=== PATIENT | female | born 1990 | race Caucasian/White ===

== ENCOUNTER 2019-05-30 05:46 | Emergency (ER) | payer SELFPAY ==
--- NOTE | 2019-05-30 06:08 | ER Document Report ---
ED GI/ - General Chief Complaint: Abdominal Pain Stated Complaint: STOMACH PAINS Time Seen by Provider: 05/30/19 06:07 Information source: Patient Notes: Ms. Rios is a 29 yo F w/ PMH anxiety presenting to the ED for abdominal pain and diarrhea. Patient states that it began early Thursday. She stayed home from work because she thought she had a right-sided ovarian cyst. She does endorse 30-40 episodes of diarrhea throughout the entire weekend between Thursday, Thursday and Thursday. Patient endorses ongoing nausea without any vomiting. She also endorses a decreased p.o. intake. She states she ate some cereal, and apple and some soup/tea all weekend. She denies any fevers but does endorse chills. She also endorses feeling anxious that she is never been in the hospital before by herself. She denies any chest pain, shortness of breath or cough. She states the diarrhea was nonbloody and yellowish in discoloration. She states that the pain has since relocated to the right upper quadrant. She has had previous umbilical hernia repair in the past. No dysuria, increased urinary frequency, vaginal discharge or lower pelvic pain. Patient states she has not been sexually active in 8 months. TRAVEL OUTSIDE OF THE [place] IN LAST 30 DAYS: No - Related Data Allergies/Adverse Reactions: No Known Allergies Allergy (Verified 05/30/19 06:39) Past Medical History - Social History Smoking Status: Never Smoker Chew tobacco use (# tins/day): No Frequency of alcohol use: None Drug Abuse: None Family History: Other - Cholelithiasis in mother Patient has suicidal ideation: No Patient has homicidal ideation: No Physical Exam - Vital signs Vitals: Temp Pulse Resp BP Pulse Ox 98.1 F 105 H 19 155/111 H 100 05/30/19 05:54 05/30/19 05:54 05/30/19 05:54 05/30/19 05:54 05/30/19 05:54 Interpretation: Hypertensive, Tachycardic - General General appearance: Appears well, Alert - HEENT Head: Normocephalic, Atraumatic Eyes: Normal Pupils: PERRL - Respiratory Respiratory status: No respiratory distress Chest status: Nontender Breath sounds: Normal Chest palpation: Normal - Cardiovascular Rhythm: Regular Heart sounds: Normal auscultation Murmur: No - Abdominal Inspection: Normal Distension: No distension Bowel sounds: Normal Tenderness: Tender. No: McBurney's point, Soler's sign, Guarding, Rebound - Tenderness to palpation in the epigastrium and right upper quadrant Organomegaly: No organomegaly - Back Back: Normal, Nontender - Extremities General upper extremity: Normal inspection, Nontender, Normal color, Normal ROM, Normal temperature General lower extremity: Normal inspection, Nontender, Normal color, Normal ROM, Normal temperature, Normal weight bearing. No: Sheridan's sign - Neurological Neuro grossly intact: Yes Cognition: Normal Orientation: AAOx4 [place] Coma Scale Eye Opening: Spontaneous [place] Coma Scale Verbal: Oriented [place] Coma Scale Motor: Obeys Commands [place] Coma Scale Total: 15 Speech: Normal Motor strength normal: LUE, RUE, LLE, RLE Sensory: Normal - Psychological Associated symptoms: Normal affect, Normal mood - Skin Skin Temperature: Warm Skin Moisture: Dry Skin Color: Normal Course - Re-evaluation Re-evalutation: Patient is generally well-appearing and nontoxic. Initial vitals notable for tachycardia as well as mildly elevated blood pressure. Differential diagnosis includes cholelithiasis, cholecystitis, GERD, gastritis Labs do not show significant leukocytosis or left shift. CMP notable for mild hyponatremia. Although the remainder of labs including LFTs are within normal limits. Lipase and UA negative. Right upper quadrant ultrasound does not show evidence of cholecystitis but patient does have cholelithiasis. Patient was given a friend and IV fluids on arrival as well as a small dose of Ativan for her anxiety. Patient will be ordered for GI cocktail given likely GERD diagnosis. 05/30/19 10:45 Patient endorses some improvement after GI cocktail. Patient discharged with famotidine and recommended to avoid foods high in acidity. Patient also recommended to avoid foods high in fat. Given return precautions should her pain worsen, unable to keep down food or drink, or any other concerning symp toms, or return to the ED for further evaluation. - Vital Signs Vital signs: Temp Pulse Resp BP Pulse Ox 98.7 F 78 16 108/68 99 05/30/19 10:51 05/30/19 10:51 05/30/19 10:51 05/30/19 10:51 05/30/19 10:51 - Laboratory Result Diagrams: 05/30/19 06:10 05/30/19 06:10 Laboratory results interpreted by me: 11/18/19 11/18/19 11/18/19 06:02 06:10 06:10 [place] % (Auto) 15.1 H Sodium 145.3 H Chloride 109 H Glucose 111 H AST 81 H Total Protein 8.4 H Urine Protein 30 H Urine Ketones 20 H Discharge - Discharge Clinical Impression: Abdominal pain, Diarrhea Condition: Good Disposition: HOME, SELF-CARE Instructions: Abdominal Pain ([facility]), Antinausea Medication ([facility]), Diarrhea, Nonspecific ([facility]) Additional Instructions: I would recommend that you avoid foods high in acidity such as tomato sauce, orange juice, and other citrus products. I would also try eating a bland per BRAT diet (bread, rice, bananas, apples, toast) the next 2 to 3 days. Make sure you stay well-hydrated and drink plenty of fluids. Follow-up with your primary care doctor. If your pain worsens, you are unable to keep down food or drink, or any other concerning symptoms, return to the ED for further evaluation. Prescriptions: Famotidine 40 mg PO DAILY #30 tablet
[2019-05-30] MEDS ORDERED: ONDANSETRON HCL INJ/PF 4 MG/2 ML SDV IV ONE (06:20)
[2019-05-30] MEDS ORDERED: NORMAL SALINE 1000 ML 1,000 ML IV ONE (06:20)
[2019-05-30] MEDS ORDERED: LORAZEPAM INJ 2 MG/1 ML VIAL IV ONE (06:20)
[2019-05-30 06:27] LABS: ABSOLUTE EOSINOPHILS # (AUTO) 0.1 10^3/uL (0.0-0.6); ABSOLUTE LYMPHOCYTES (AUTO) 1.7 10^3/uL (0.5-4.7); ABSOLUTE MONOCYTES (AUTO) 1.2 10^3/uL (0.1-1.4); ABSOLUTE NEUT (AUTO) 4.9 10^3/uL (1.7-8.2); BASOPHILS % (AUTO) 0.3 % (0-2); EOSINOPHILS % (AUTO) 1.4 % (0-6); HEMATOCRIT 44.4 % (36.0-47.0); HEMOGLOBIN 15.2 g/dL (12.0-15.5); LYMPHOCYTES % (AUTO) 21.2 % (13-45); MEAN CORPUSCULAR HEMOGLOBIN 30.3 pg (27.0-33.4); MEAN CORPUSCULAR HGB CONC 34.3 g/dL (32.0-36.0); MEAN CORPUSCULAR VOLUME 88 fl (80-97); MONOCYTES % (AUTO) 15.1 % (3-13); PLATELET COUNT 290 10^3/uL (150-450); RED BLOOD COUNT 5.03 10^6/uL (3.72-5.28); RED CELL DISTRIBUTION WIDTH 13.7 % (11.5-14.0); TOTAL CELLS COUNTED % (AUTO) 100 %; WHITE BLOOD COUNT 7.9 10^3/uL (4.0-10.5)
[2019-05-30 06:32] LABS: APPEARANCE,URINE CLOUDY; BILIRUBIN,URINE NEGATIVE (NEGATIVE); CALCIUM OXALATE CRYSTALS,URINE TOO NUMEROUS TO CNT /HPF; COLOR,URINE DARK YELLOW; GLUCOSE, URINE NEGATIVE (NEGATIVE); KETONES,URINE 20 mg/dL (NEGATIVE); LEUKOCYTE ESTERASE,URINE NEGATIVE (NEGATIVE); NITRITE,URINE NEGATIVE (NEGATIVE); PROTEIN,URINE 30 mg/dL (NEGATIVE); URINE SPECIFIC GRAVITY 1.033; UROBILINOGEN,URINE NEGATIVE mg/dL (<2.0)
[2019-05-30 06:49] LABS: ALBUMIN 4.7 g/dL (3.5-5.0); ALKALINE PHOSPHATASE 80 U/L (38-126); ANION GAP 13 (5-19); ASPARTATE AMINO TRANSFERASE 81 U/L (14-36); BILIRUBIN,DIRECT 0.1 mg/dL (0.0-0.4); BILIRUBIN,TOTAL 0.4 mg/dL (0.2-1.3); BLOOD UREA NITROGEN 10 mg/dL (7-20); CALCIUM 9.7 mg/dL (8.4-10.2); CARBON DIOXIDE 23 mmol/L (22-30); CHLORIDE 109 mmol/L (98-107); GLUCOSE 111 mg/dL (75-110); POTASSIUM 4.2 mmol/L (3.6-5.0); TOTAL PROTEIN 8.4 g/dL (6.3-8.2)
--- NOTE | 2019-05-30 08:24 | RADIOLOGY REPORT (SQ) ---
EXAM DESCRIPTION: U/S ABDOMEN LIMITED W/O DOP COMPLETED DATE/TIME: 05/30/2019 7:14 am REASON FOR STUDY: ruq pain COMPARISON: None. TECHNIQUE: Dynamic and static grayscale images acquired of the abdomen and recorded on PACS. Kamalao butch selected color Doppler and spectral images recorded. LIMITATIONS: None. FINDINGS: PANCREAS: No masses. Visualized pancreatic duct normal caliber. LIVER: Fatty liver. The liver measures 17.0 cm in length, upper limits of normal for size. LIVER VASCULATURE: Normal directional flow of the main portal vein and hepatic veins. GALLBLADDER: No stones. The gallbladder wall measures 2.1 mm, normal wall thickness. No pericholecys tic fluid. ULTRASOUND-DETECTED BRENNAN'S SIGN: Negative. INTRAHEPATIC DUCTS AND COMMON DUCT: CBD measures 3.0 mm in diameter, normal. The intrahepatic ducts normal caliber. No filling defects. INFERIOR VENA CAVA: Normal flow. AORTA: No aneurysm. RIGHT KIDNEY: The right kidney measures 10.0 x 5.1 x 5.4 cm, normal size. Normal echogenicity. No so lid or suspicious masses. No hydronephrosis. No calcifications. PERITONEAL AND RIGHT PLEURAL SPACE: No ascites or effusions. OTHER: No other significant findings. IMPRESSION: 1. NORMAL RIGHT UPPER QUADRANT ULTRASOUND. TECHNICAL DOCUMENTATION: JOB ID: [id number] [employer]- All Rights Reserved Reading location - IP/workstation name: [email or web address]
[2019-05-30] MEDS ORDERED: METOCLOPRAMIDE HCL ORAL SOLN 10 MG/10 ML UDCUP PO ONE (09:33)
[2019-05-30] MEDS ORDERED: LIDOCAINE 2% VISCOUS SOLN 20 ML UDCUP PO ONE (09:33)
[2019-05-30] MEDS ORDERED: MAG HYDROX/AL HYDROX/SIMETH SUSP 30 ML UDCUP PO ONE (09:33)
[2019-05-30 10:52] VITALS: BP 108/68
== END 2019-05-30 10:53 | disposition home or self-care (01) ==
LOC: ER 05:46
DX: R10.9 Unspecified abdominal pain (principal); R19.7 Diarrhea, unspecified
CPT/HCPCS: 36415; 84702; 83690; 85025; 81025; 80076; 80048; 81001; 76705; J3490; J2060; J2405; J7030; 96361; 96374; 96375; 99284